=== PATIENT | male | born 2005 | race African-American/Black ===

== ENCOUNTER 2025-05-16 20:28 | Emergency (ER) | payer OTHER ==
[~2025-05-16] VITALS: Ht 182.9 cm; Wt 68.2 kg
[2025-05-16 20:44] VITALS: BP 125/66; PULSE 51; RESP 16; TEMP 97.9; O2SAT 100
== END 2025-05-16 23:30 | disposition left against medical advice (07) ==
LOC: EMS 20:30
DX: S61.412A Laceration without foreign body of left hand, initial encounter (principal); Z53.21 Procedure and treatment not carried out due to patient leaving prior to being seen by health care provider; W26.8XXA Contact with other sharp object(s), not elsewhere classified, initial encounter; Y93.89 Activity, other specified; Y92.89 Other specified places as the place of occurrence of the external cause; Y99.0 Civilian activity done for income or pay
CPT/HCPCS: 99281; Z7502